=== PATIENT | female | born 1960 | race Caucasian/White ===

== ENCOUNTER 2018-08-29 23:10 | Emergency (ER) | payer SELFPAY ==
[~2018-08-29] VITALS: Ht 167.6 cm; Wt 113.4 kg
--- OUTSIDE RECORDS SUMMARY | ~2018-08-29 | XMS | Encounter Summary ---
Demographics + + + | Address | [address] | | | [place] [address] | + + + | Home Phone | | + + + | Preferred Language | Unknown | + + + | Marital Status | Unknown | + + + | Latter Day Affiliation | Unknown | + + + | Race | Unknown | + + + | Ethnic Group | Unknown | + + + Author + + + | Author | [facility] | + + + | Organization | [facility] | + + + | Address | Unknown | + + + | Phone | Unavailable | + + + Care Team Providers + +------+ + | Care Room Service Bellhop Name | Role | Phone | + +------+ + PCP | Unavailable | + +------+ + Reason for Visit +---------+ + | Reason | Comments | +---------+ + | Amnesia | | +---------+ + Encounter Details +--------+ + + + + | Date | Type | Department | Care Team | Description | +--------+ + + + + | 06/26/ | Emergency | [facility] | | | | 2015 | | Department [address] | | | | | | [address] | | | | | | [facility] | | | | | | [place] [address] | | | | | | [phone] | | | +--------+ + + + + Social History + +-------+ +--------+------+ | Tobacco Use | Types | Packs/Day | Years | Date | | | | | Used | | + +-------+ +--------+------+ | Never Assessed | | | | | + +-------+ +--------+------+ + + + | Sex Assigned at | Date Recorded | | | | + + + | Not on file | | + + + + + + + | Job Start Date | Occupation | Industry | + + + + | Not on file | Not on file | Not on file | + + + + + + + + | Travel History | Travel Start | Travel End | + + + + + + | No recent travel history available. | + + documented as of this encounter Plan of Treatment Not on filedocumented as of this encounter Visit Diagnoses Not on filedocumented in this encounter"
--- OUTSIDE RECORDS SUMMARY | ~2018-08-29 | XMS | Encounter Summary ---
Demographics + + + | Address | [address] | | | [place] [address] | + + + | Home Phone | | + + + | Preferred Language | Unknown | + + + | Marital Status | Unknown | + + + | Mandaen Affiliation | Unknown | + + + | Race | Unknown | + + + | Ethnic Group | Unknown | + + + Author + + + | Author | [facility] | + + + | Organization | [facility] | + + + | Address | Unknown | + + + | Phone | Unavailable | + + + Care Team Providers + +------+ + | Care Card Seller Name | Role | Phone | + +------+ + PCP | Unavailable | + +------+ + Encounter Details +--------+ + + + + | Date | Type | Department | Care Team | Description | +--------+ + + + + | 08/28/ | Document-Sc | Health Information | Unknown . | | | 2017 | ann | Services [address] | | | | | | [address] | | | | | | Road Mailcode: | | | | | | [address] | | | | | | [facility] | | | | | | [place], [place] | | | | | | [address] | | | | | | [phone] | | | +--------+ + + + [...]
--- OUTSIDE RECORDS SUMMARY | ~2018-08-29 | XMS | Clinical Summary ---
Demographics + + + | Address | [address] | | | [place] [address] | + + + | Home Phone | | + + + | Preferred Language | Unknown | + + + | Marital Status | Unknown | + + + | Pentecostalism Affiliation | Unknown | + + + | Race | Unknown | + + + | Ethnic Group | Unknown | + + + Author + + + | Author | [facility] | | | and [place] | + + + | Organization | [facility] | | | and [place] | + + + | Address | Unknown | + + + | Phone | Unavailable | + + + Care Team Providers + +------+ + | Care Control Cabinet Assembler Name | Role | Phone | + +------+ + PP | Unavailable | + +------+ + Allergies Not on File Medications Not on file Active Problems Not on file Social History + +-------+ +--------+------+ | Tobacco [...] recent travel history available. | + + Last Filed Vital Signs + + + + | Vital Sign | Reading | Time Taken | + + + + | Blood Pressure | 116/68 | 10/04/20151311 PDT | + + + + | Pulse | 70 | 10/04/20151311 PDT | + + + + | Temperature | - | - | + + + + | Respiratory Rate | 16 | 10/04/20151311 PDT | + + + + | Oxygen Saturation | 97% | 10/04/20151311 PDT | + + + + | Inhaled Oxygen | - | - | | Concentration | | | + + + + | Weight | 128.2 kg (282 lb 9.4 | 10/04/20151311 PDT | | | oz) | | + + + + | Height | 165.1 cm (5' 5") | 10/04/20151311 PDT | + + + + | Body Mass Index | 47.03 | 10/04/20151311 PDT | + + + + Plan of Treatment + + + + + | Health Maintenance | Due Date | Last Done | Comments | + + + + + | Vaccine: | | | | | Dtap/Tdap/Td (1 - | 9 | | | | Tdap) | | | | + + + + + | Cervical Cancer | | | | | Screening (Pap) | 0 | | | + + + + + | Vaccine: Zoster (1 | | | | | of 2) | 0 | | | + + + + + | Vaccine: Influenza | | | | | (Season Ended) | 9 | | | + + + + + Results Not on filefrom Last 3 Months
--- OUTSIDE RECORDS SUMMARY | ~2018-08-29 | XMS | Encounter Summary ---
Demographics + + + | Address | [address] | | | [place] [address] | + + + | Home Phone | | + + + | Preferred Language | Unknown | + + + | Marital Status | Unknown | + + + | Temple Affiliation | Unknown | + + + | Race | Unknown | + + + | Ethnic Group | Unknown | + + + Author + + + | Author | [facility] | + + + | Organization | [facility] | + + + | Address | Unknown | + + + | Phone | Unavailable | + + + Care Team Providers + +------+ + | Care Hotbed Lever Operator Name | Role | Phone | + [...] Mailcode: | | | | | | [address] | | | | | | [place] | | | | | | [place], [place] | | | | | | [address] | | | | | | [phone] | | | +--------+ + + + [...]
--- OUTSIDE RECORDS SUMMARY | ~2018-08-29 | XMS | Encounter Summary ---
Demographics + + + | Address | [address] | | | [place] [address] | + + + | Home Phone | | + + + | Preferred Language | Unknown | + + + | Marital Status | Unknown | + + + | Pentecostalism Affiliation | Unknown | + + + | Race | Unknown | + + + | Ethnic Group | Unknown | + + + Author + + + | Author | [facility] | + + + | Organization | [facility] | + + + | Address | Unknown | + + + | Phone | Unavailable | + + + Care Team Providers + +------+ + | Care Manager Of Revenue Name | Role | Phone | + +------+ + PCP | Unavailable | + +------+ + Encounter Details +--------+ + + + + | Date | Type | Department | Care Team | Description | +--------+ + + + + | 06/26/ | Outside | Neurophysiology | Magdalene Velasco PA | | | 2016 | Referral | EEG at [facility] [address] | [address] | | | | Order | [facility] | [facility] [address] | | | | | Road Mailcode: | [place] | | | | | [address] | [place] [address] | | | | | [facility] | [phone] | | | | | [place], [place] | | | | | | [address] | | | | | | [phone] | | | +--------+ + + + [...] Not on filedocumented as of this encounter Procedures + +--------+ + + + | Procedure Name | Priori | Date/Time | Associated Diagnosis | Comments | | | ty | | | | + +--------+ + + + | EEG ROUTINE | Routin | 06/26/2015 | | Results for this | | | e | | | procedure are in the | | | | | | results section. | + +--------+ + + + | EEG ROUTINE | Routin | 06/26/2015 | | Results for this | | | e | | | procedure are in the | | | | | | results section. | + +--------+ + + + documented in this encounter Results EEG ROUTINE (06/26/2015) + + | Specimen | + + | | + + + + + | Narrative | Performed At | + + + | Patient Name: Mine Malave Date of : 1960 Medical | | | Record Number: [id number] Date of Test: 06/27/2015 Place of | | | Service: [facility] Telemedicine ([id number]) [facility] Department: [facility] | | | TELEMEDICINE - [id number] Place of Service: [facility] ROUTINE | | | EEG - URGENT REQUEST Reason for Exam: Evaluate for seizure | | | activity. History: Per faxed information sheets, 54 year old | | | female with history of epilepsy, admitted to OSH with confusional | | | event and altered mental status. There is concern for ongoing seizure | | | activity. Medications: Per faxed information sheets, albuterol, | | | azithromycin, loratidine, melatonin, naproxen, vitamin D. No seizure | | | medication documented. Methods: This study was a Routine EEG | | | with a duration of 27 minutes. The recording was performed with | | | routine electrodes applied according to the 10-20 electrode placement | | | system. Video, EKG, and EOG monitoring were utilized. The recording | | | was obtained on a digital system. EEG computer review was utilized. | | | Automated digital spike and seizure detection analysis was used, | | | along with patient-activated alarms and nursing observations. | | | Technologist's Note: No skull defect or scalp edema were present. | | | EEG Description: Background: The record was obtained in awake, | | | drowsy and light sleep states. No sedation was used. The posterior | | | awake dominant background activity was a continuous, reactive rhythm | | | of (10 Hz, 20-30 uV). This was symmetric and well modulated, and | | | attenuated with eye opening. Symmetric diffuse frontocentral beta | | | range activity was present. As the patient grew drowsy, a drop out of | | | the background rhythm occurred. Light stages of sleep were observed | | | though the patient did not progress to deeper stages of sleep. | | | Interictal Findings: Abnormal slow wave activity: No consistent | | | focal slowing was noted. There appeared to be mild disorganization of | | | the background seen over the left posterior quadrant, particularly | | | the left posterior temporal-occipital regions, however this was | | | primarily observed in the setting of drowsiness and hyperventilation | | | and was of unclear clinical significance. Epileptiform activity: | | | Several well formed bursts of high amplitude spike and wave and | | | polyphasic polyspike and wave complexes (200-300 uV, 2.5-5 Hz) were | | | seen throughout the recording. These were provoked by both | | | hyperventilation and especially photic stimulation (6, 15, 20 Hz), | | | and occurred in sustained runs of 2-6 seconds. It was difficult to | | | tell due to photic stimulation if there was any subtle clinical | | | correlate with any of these bursts. Of interest is that while the | | | field during these runs of well formed discharges was broad | | | (generalized) and often with a frontally maximal electronegativity, | | | often seen throughout the recording were bursts of blunted sharp | | | waves and sharp slow wave complexes seen in the posterior | | | temporal/occipital regions bilaterally (T5/O2; T6/O2). Ictal | | | Activity: No seizures were observed though several runs of | | | epileptiform discharges were seen as above. Clinical Events: None | | | noted. Other variants: None. Activation: a) HV: | | | Hyperventilation was performed for 3 minutes with fair | | | effort that produced the discharges as above b) IPS: During IPS at | | | 1, 3, 6, 8, 10, 12, 15, 20, 30 Hz, symmetric bilateral driving of | | | the occipital rhythms appeared. Several bursts of epileptiform | | | discharges were seen as above. Extra leads: Single EKG lead showed | | | a normal sinus rhythm. IMPRESSION This EEG is abnormal. | | | Frequent bursts of spike and poly-spike/wave complexes were seen | | | throughout the recording as described above, apparently provoked in | | | part by hyperventilation and in particular photic stimulation, | | | suggesting cortical irritability and increased risk for seizures. 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 | | | However, as noted, there were some atypical features seen, in | | | particular a frequent posterior predominance to some of the | | | fragmentary discharges, which is somewhat atypical for most primary | | | generalized epilepsy syndromes; a deep focal epilepsy with rapid | | | propagation can not be completely excluded. No sustained seizure | | | activity was seen, though several runs of discharges were seen as | | | above. Electronically signed on 06/27/2015 at 5:23 PM Jimi Pope | | | . Results faxed to [place] at the requested fax on 06/27/15 at | | | approximately 17:30. Jimi Pope MD Suggested Modifier: GT - | | | Telemedicine Suggested CPT: 83121 - EEG Routine Awake & Asleep and | | | EEGUR - URGENT TELEMED Suggested Dx: R56.9 Unspecified convulsions | | | | | + + + EEG ROUTINE (06/26/2015) + + + | Narrative | Performed At | + + + | Duplicate order. | | + + + documented in this encounter Visit Diagnoses Not on filedocumented in this encounter"
--- OUTSIDE RECORDS SUMMARY | ~2018-08-29 | XMS | Encounter Summary ---
Demographics + + + | Address | [address] | | | [place] [address] | + + + | Home Phone | | + + + | Preferred Language | Unknown | + + + | Marital Status | Unknown | + + + | Evangelical Affiliation | Unknown | + + + | Race | Unknown | + + + | Ethnic Group | Unknown | + + + Author + + + | Author | [facility] | + + + | Organization | [facility] | + + + | Address | Unknown | + + + | Phone | Unavailable | + + + Care Team Providers + +------+ + | Care Roller Structural Mill Name | Role | Phone | + +------+ + PCP | Unavailable | + +------+ + Encounter Details +--------+ + + + + | Date | Type | Department | Care Team | Description | +--------+ + + + + | 06/26/ | Outside | Neurophysiology | Magdalene Velasco PA | | | 2016 | Referral | EEG at [facility] [address] | [address] | | | | Order | [facility] | [facility] [address] | | | | | [address] Mailcode: | [place] | | | | | [address] | [place] [address] | | | | | [facility] | [phone] | | | | | [place], [place] | | | | | | [address] | | | | | | [phone] | | | +--------+ + + + [...] 1960 Medical | | | Record Number: [id number] Date of Test: 06/27/2015 Place of | | | Service: [facility] Telemedicine ([id number]) [facility] Department: [facility] | | | TELEMEDICINE - [id number] Place of Service: [facility] ROUTINE | | | EEG - [...] | | | . Results faxed to [place] at the requested fax on 06/27/15 at | | | approximately 17:30. Jimi Pope MD Suggested Modifier: GT - | | | Telemedicine Suggested CPT: 44978 - EEG Routine Awake & Asleep and [...]
--- OUTSIDE RECORDS SUMMARY | ~2018-08-29 | XMS | Clinical Summary ---
Demographics + + + | Address | [address] | | | [place] [address] | + + + | Home Phone | | + + + | Preferred Language | Unknown | + + + | Marital Status | Unknown | + + + | Yazdanism Affiliation | Unknown | + + + | Race | Unknown | + + + | Ethnic Group | Unknown | + + + Author + + + | Author | [facility] | | | and [place] | + + + | Organization | [facility] | | | and [place] | + + + | Address | Unknown | + + + | Phone | Unavailable | + + + Care Team Providers + +------+ + | Care Associate Professor Of Education Name | Role | Phone | + [...]
--- OUTSIDE RECORDS SUMMARY | ~2018-08-29 | XMS | Encounter Summary ---
Demographics + + + | Address | [address] | | | [place] [address] | + + + | Home Phone | | + + + | Preferred Language | Unknown | + + + | Marital Status | Unknown | + + + | Zoroastrian Affiliation | Unknown | + + + | Race | Unknown | + + + | Ethnic Group | Unknown | + + + Author + + + | Author | [facility] | + + + | Organization | [facility] | + + + | Address | Unknown | + + + | Phone | Unavailable | + + + Care Team Providers + +------+ + | Care Leveling Machine Operator Name | Role | Phone | + +------+ + PCP | Unavailable | + +------+ + Reason for Visit +--------+ + | Reason | Comments | +--------+ + | Other | Encephalopathy | +--------+ + Encounter Details +--------+ + + + + | Date | Type | Department | Care Team | Description | +--------+ + + + + | 06/25/ | Emergency | [facility] Emergency | | | | 2015 | | Department [address] | | | | | [address] | | | | | | [facility] | | | | | | [place] [address] | | | | | | [phone] | | | +--------+ + + + [...]
--- OUTSIDE RECORDS SUMMARY | ~2018-08-29 | XMS | Encounter Summary ---
Demographics + + + | Address | [address] | | | [place] [address] | + + + | Home Phone | | + + + | Preferred Language | Unknown | + + + | Marital Status | Unknown | + + + | Protestant Affiliation | Unknown | + + + | Race | Unknown | + + + | Ethnic Group | Unknown | + + + Author + + + | Author | [facility] | + + + | Organization | [facility] | + + + | Address | Unknown | + + + | Phone | Unavailable | + + + Care Team Providers + +------+ + | Care Monitoring Tech Name | Role | Phone | + +------+ + PCP | Unavailable | + +------+ + Encounter Details +--------+ + + + + | Date | Type | Department | Care Team | Description | +--------+ + + + + | 09/26/ | Document-Sc | UNKNOWN DEPARTMENT | Unknown . | | | 2013 | anned | [address] [facility] | | | | | | [facility] | | | | | | [place], [place] | | | | | | [address] | | | +--------+ + + + [...]
--- OUTSIDE RECORDS SUMMARY | ~2018-08-29 | XMS | Encounter Summary ---
Demographics + + + | Address | [address] | | | [place] [address] | + + + | Home Phone | | + + + | Preferred Language | Unknown | + + + | Marital Status | Unknown | + + + | Zoroastrianism Affiliation | Unknown | + + + | Race | Unknown | + + + | Ethnic Group | Unknown | + + + Author + + + | Author | [facility] | + + + | Organization | [facility] | + + + | Address | Unknown | + + + | Phone | Unavailable | + + + Care Team Providers + +------+ + | Care Autism Tutor Name | Role | Phone | + +------+ + PCP | Unavailable | + +------+ + Reason for Referral Diagnostic Testing +--------+--------+ + + + + | Status | Reason | Specialty | Diagnoses / | Referred By | Referred To | | | | | Procedures | Contact | Contact | +--------+--------+ + + + + | Closed | | Clinical | Procedures | Cnl Eeg | [facility] Eeg H[facility] | | | | Neurophysiolo | EEG | Hrc [address] | | | | gy | ROUTINE | [address] | | | | | | [address] | [address] | | | | | | Road | Mailcode: | | | | | | Mailcode: | [address] | | | | | | [address] | [place] | | | | | | [place] | [facility] | | | | | | [facility] | [place] | | | | | | [place] | [place], [place] | | | | | | [place], [place] | [address] | | | | | | [address] | Phone: | | | | | | Phone: | [phone] | | | | | | [phone] | Fax: | | | | | | Fax: | [phone] | | | | | | [phone] | | +--------+--------+ + + + + Encounter Details +--------+ + + + + | Date | Type | Department | Care Team | Description | +--------+ + + + + | 06/24/ | Outside | Neurophysiology | Beck Nath | | | 2012 | Referral | EEG at [facility] [address]rb[address] MD [facility] | | | | Order | [facility] | [facility] | | | | | Road Mailcode: | [address] [facility] | | | | | [address] | [place], [place] | | | | | [facility] | [address] | | | | | [place], [place] | [phone] | | | | | [address] | | | | | | [phone] | | | +--------+ + + + [...] + | EEG ROUTINE | Routin | 06/24/2012 | | Results for this | | | e | | | procedure are in the | | | | | | results section. | + +--------+ + + + documented in this encounter Results EEG ROUTINE (06/24/2012) + + | Specimen | + + | | + + + + + | Narrative | Performed At | + + + | Patient Name: Mine Malave Date of : 1960 Medical | | | Record Number: [id number] Date of Test: 06/24/2012 Place of | | | Service: [facility] Department: EEG [facility] - [id number] ROUTINE | | | EEG History: 51 year old woman with unexplained encephalopathy | | | Medications: Metformin, multivitamin, and cold medication are | | | listed Interpretation: In the maximally alert state, there is a | | | reactive 11 Hz posterior dominant rhythm with some admixed faster | | | 12-14 Hz activity of low to moderate amplitude, with lower amplitude | | | faster frequencies present symmetrically in the anterior head | | | regions. The patient entered into the drowsy state, stage I, but | | | not stage II of sleep, with normal presence and distribution of sleep | | | transients. No focal slowing was present. During sleep, two brief | | | bursts of generalized spike wave or polyspike and wave activity are | | | seen, with a ~ 5 Hz repetition rate and lasting ~ 1 second. There are | | | no reported clnical signs; no video is available for review. One | | | additional fragmentary generalized spike wave discharge lasting ~ 200 | | | msec is noted. Hyperventilation was performed for 3 minutes with no | | | abnormal responses. Photic stimulation produced no photoparoxysmal | | | discharges or other abnormal responses. EKG showed normal sinus | | | rhythm throughout the recording. Impression: This is an abnormal | | | awake and asleep EEG because of rare generalized spike wave | | | discharges on two occasions lasting < 1 second each. This finding is | | | most commonly seen in patients with idiopathic (primary) generalized | | | epilepsies. While no electrographic seizure activity was recorded | | | on this routine EEG, subtle or subclinical seizure activity ("spike | | | wave stupor") should be considered in the differential for an | | | unexplained encephalopathic presentation. HAJI MD. Suggested CPT: 42141 - | | | EEG Routine Awake & Asleep Suggested Dx: 345.00- Epilepsy, General, | | | non-convuls | | + + + documented in this encounter Visit Diagnoses Not on filedocumented in this encounter
--- OUTSIDE RECORDS SUMMARY | ~2018-08-29 | XMS | Encounter Summary ---
Demographics + + + | Address | [address] | | | [place] [address] | + + + | Home Phone | | + + + | Preferred Language | Unknown | + + + | Marital Status | Unknown | + + + | Quaker Affiliation | Unknown | + + + | Race | Unknown | + + + | Ethnic Group | Unknown | + + + Author + + + | Author | [facility] | + + + | Organization | [facility] | + + + | Address | Unknown | + + + | Phone | Unavailable | + + + Care Team Providers + +------+ + | Care Pusher Runner Name | Role | Phone | + +------+ + PCP | Unavailable | + +------+ + Reason for Visit +---------+ + | Reason | Comments | +---------+ + | Amnesia | | +---------+ + Encounter Details +--------+ + + + + | Date | Type | Department | Care Team | Description | +--------+ + + + + | 06/26/ | Emergency | [facility] Emergency | | | | 2015 | | Department [address] | | | | | | [address] | | | | | | [facility] | | | | | | [place] [address] | | | | | | [phone] | | | +--------+ + + + [...]
--- OUTSIDE RECORDS SUMMARY | ~2018-08-29 | XMS | Clinical Summary ---
Demographics + + + | Address | [address] | | | [place] [address] | + + + | Home Phone | | + + + | Preferred Language | Unknown | + + + | Marital Status | Unknown | + + + | Jehovah'S Witness Affiliation | Unknown | + + + | Race | Unknown | + + + | Ethnic Group | Unknown | + + + Author + + + | Author | [facility] | + + + | Organization | [facility] | + + + | Address | Unknown | + + + | Phone | Unavailable | + + + Care Team Providers + +------+ + | Care Tank Builder Supervisor Name | Role | Phone | + +------+ + PP | Unavailable | + +------+ + Source Comments ALICIA is fully live on both [facility] Ambulatory and [facility] InPatient.[facility] Allergies Not on File Medications Not on [...] recent travel history available. | + + Plan of Treatment + + + + + | Health Maintenance | Due Date | Last Done | Comments | + + + + + | Influenza (Flu) | | | | | vaccination (Season | 9 | | | | Ended) | | | | + + + + + | Pneumococcal | Aged Out | | No longer eligible | | vaccination | | | based on patient's | | | | | age to complete this | | | | | topic | + + + + + Results Not on filefrom Last 3 Months"
--- OUTSIDE RECORDS SUMMARY | ~2018-08-29 | XMS | Encounter Summary ---
Demographics + + + | Address | [address] | | | [place] [address] | + + + | Home Phone | | + + + | Preferred Language | Unknown | + + + | Marital Status | Unknown | + + + | Sikh Affiliation | Unknown | + + + [...] Team Providers + +------+ + | Care Fuselage Framer Name | Role | Phone | + [...] + + | 06/25/ | Emergency | [facility] Emergency | | | | 2015 | | Department [address] | | | | | [address] | | | | | | [facility] | | | | | | [place] [address] | | | | | | [phone] | | | +--------+ + + + [...]
--- OUTSIDE RECORDS SUMMARY | ~2018-08-29 | XMS | Encounter Summary ---
Demographics + + + | Address | [address] | | | [place] [address] | + + + | Home Phone | | + + + | Preferred Language | Unknown | + + + | Marital Status | Unknown | + + + | Gnosticism Affiliation | Unknown | + + + | Race | Unknown | + + + | Ethnic Group | Unknown | + + + Author + + + | Author | [facility] | + + + | Organization | [facility] | + + + | Address | Unknown | + + + | Phone | Unavailable | + + + Care Team Providers + +------+ + | Care Oil And Gas Drafter Name | Role | Phone | + +------+ + PCP | Unavailable | + +------+ + Encounter Details +--------+ + + + + | Date | Type | Department | Care Team | Description | +--------+ + + + + | 09/26/ | Document-Sc | UNKNOWN DEPARTMENT | Unknown . | | | 2013 | anned | [address] [facility] | | | | | | [facility] | | | | | | [place], [place] | | | | | | [address] | | | +--------+ + + + [...]
--- OUTSIDE RECORDS SUMMARY | ~2018-08-29 | XMS | Clinical Summary ---
Demographics + + + | Address | [address] | | | [place] [address] | + + + | Home Phone | | + + + | Preferred Language | Unknown | + + + | Marital Status | Unknown | + + + | Religion Affiliation | Unknown | + + + [...] Team Providers + +------+ + | Care Seafood Harvester Name | Role | Phone | + +------+ + PP | Unavailable | + +------+ + Source Comments ALICIA is fully live on both [facility] and [facility] Allergies Not on File Medications [...]
--- OUTSIDE RECORDS SUMMARY | ~2018-08-29 | XMS | Clinical Summary ---
Demographics + + + | Address | [address] | | | [place] [address] | + + + | Home Phone | | + + + | Preferred Language | Unknown | + + + | Marital Status | | + + + | Anabaptist Affiliation | Unknown | + + + | Race | Unknown | + + + | Ethnic Group | Unknown | + + + Author + + + | Author | [facility] | + + + | Organization | [facility] | + + + | Address | Unknown | + + + | Phone | Unavailable | + + + Support + + +---------+ + | Name | Relationship | Address | Phone | + + +---------+ + | Contact,No | ECON | Unknown | | + + +---------+ + Care Team Providers + +------+ + | Care Generator Operator Straight Bevel Gear Name | Role | Phone | + +------+ + | Magdalene Velasco PA-C | PP | Unavailable | + +------+ + Allergies Not on File Current Medications Not on file Active Problems Not [...] on file | | + + + Plan of Treatment Not on file Results Not on filefrom Last 3 Months"
--- OUTSIDE RECORDS SUMMARY | ~2018-08-29 | XMS | Clinical Summary ---
Demographics + + + | Address | [address] | | | [place] [address] | + + + | Home Phone | | + + + | Preferred Language | Unknown | + + + | Marital Status | | + + + | Tenriism Affiliation | Unknown | + + + | Race | Unknown | + + + | Ethnic Group | Unknown | + + + Author + + + | Author | [facility] | + + + | Organization | [facility] | + + + | Address | Unknown | + + + | Phone | Unavailable | + + + Support + + +---------+ + | Name | Relationship | Address | Phone | + + +---------+ + | Contact,No | ECON | Unknown | | + + +---------+ + Care Team Providers + +------+ + | Care Aeronautical Engineering Technologist Name | Role | Phone | + [...]
--- OUTSIDE RECORDS SUMMARY | ~2018-08-29 | XMS | Encounter Summary ---
Demographics + + + | Address | [address] | | | [place] [address] | + + + | Home Phone | | + + + | Preferred Language | Unknown | + + + | Marital Status | Unknown | + + + | Islam Affiliation | Unknown | + + + | Race | Unknown | + + + | Ethnic Group | Unknown | + + + Author + + + | Author | [facility] | + + + | Organization | [facility] | + + + | Address | Unknown | + + + | Phone | Unavailable | + + + Care Team Providers + +------+ + | Care Lawn And Garden Technician Name | Role | Phone | + [...] | | | | | | [address] | [address] | | | | | | Road | Mailcode: | | | | | | Mailcode: | [address] | | | | | | [address] | [place] | | | | | | [place] | [facility] | | | | | | [facility] | [place] | | | | | | [place] | [place], [place] | | | | | | [place], [place] | [address] | | | | | | [address] | Phone: | | | | | | Phone: | [phone] | | | | | | [phone] | Fax: | | | | | | Fax: | [phone] | | | | | | [phone] | | +--------+--------+ + + + + Encounter Details +--------+ + + + + | Date | Type | Department | Care Team | Description | +--------+ + + + + | 06/24/ | Outside | Neurophysiology | [facility] | | | 2012 | Referral | EEG at [facility] [address] [facility] | | | | Order | [facility] | [facility] | | | | | Road Mailcode: | [address] [facility] | | | | | [address] [place] | [place], [place] | | | | | [facility] | [address] | | | | | [place], [place] | [phone] | | | | | [address] | | | | | | [phone] | | | +--------+ + + + [...] 1960 Medical | | | Record Number: [id number] Date of Test: 06/24/2012 Place of | | | Service: [facility] Department: EEG [facility] - [id number] ROUTINE | | | EEG History: 51 [...] unexplained encephalopathic presentation. HAJI MD. Suggested CPT: 93752 - | | | EEG Routine Awake & Asleep Suggested Dx: 345.00- Epilepsy, General, | | | non-convuls | | + + + documented in this encounter Visit Diagnoses Not on filedocumented in this encounter
[~2018-08-29 23:10] MED LIST: ALEVE220 MG PO; ALLERCLEAR10 MG PO; AZITHROMYCIN250 MG; FOLGARD TABLET1 EAC1 PO; KEPPRA500 MG PO; LISINOPRIL20 MG PO; MELATONIN10 M2 PO; METFORMIN HCL500 MG PO; PROAIR HFA8.5 GM INH
[2018-08-29] MEDS ORDERED: KEPPRA750 MG PO (23:30)
== END 2018-08-30 00:07 | disposition home or self-care (01) ==
LOC: ED 23:10
DX: R56.9 Unspecified convulsions (principal); Z98.84 Bariatric surgery status; Z79.899 Other long term (current) drug therapy
CPT/HCPCS: 99283

== ENCOUNTER 2020-08-22 11:39 | Emergency (ER) | payer OTHER ==
[~2020-08-22] VITALS: Ht 167.6 cm; Wt 117.9 kg
[~2020-08-22 11:39] MED LIST changes: +KEPPRA750 MG PO
[2020-08-22] MEDS ORDERED: CEPHALEXIN500 M1 PO (12:48)
== END 2020-08-22 13:03 | disposition home or self-care (01) ==
LOC: ED 11:39
DX: L03.116 Cellulitis of left lower limb (principal); Z91.013 Allergy to seafood; Z79.899 Other long term (current) drug therapy; Z79.84 Long term (current) use of oral hypoglycemic drugs
CPT/HCPCS: 99283